=== PATIENT | male | born 1985 | race Caucasian/White ===

== ENCOUNTER 2019-09-19 18:02 | Emergency (ER) | payer OTHER, SELFPAY ==
[2019-09-19 18:23] VITALS: BP 126/73; PULSE 55; RESP 18; TEMP 36.2; O2SAT 100
[2019-09-19] MEDS: TETANUS,DIPHTHERIA,AC PERTUSSIS ADULT 0.5 ML (ADACEL) IM (18:45)
--- NOTE | 2019-09-19 19:06 | ED.WOUNDLAC ---
HPI - Wound/Laceration General Chief Complaint: Wound/Laceration Stated Complaint: cut hand Source: patient Limitations: no limitations History of Present Illness HPI narrative: This is a 34-year-old gentleman presents with a laceration to the radial surface of his right hand approximately 3cm in length that is keeping with minimal blood loss is not up-to-date with his tetanus, currently there is no fever chills can wiggle his fingers there is no numbness and has a strong brisk radial pulse. Laceration occurred while using a saw that occurred approximately 2 to 3 hours ago. Onset (ago): hour(s) Extremity Location: Right: hand (gapping lac) Place: home Context: accidental Associated symptoms: none Treatments prior to arrival: bandage Related Data Home Medications Medication Instructions Recorded Confirmed No Home Medications 09/19/19 09/19/19 Allergies Allergy/AdvReac Type Severity Reaction Status Date / Time doxycycline Allergy Mild Unknown Verified 09/19/19 18:37 Review of Systems Review of Systems: All systems reviewed & are unremarkable except as noted in HPI and below PMFSH Past Medical History Medical History Patient denies medical problems Exam Const: General: no acute distress and alert Orientation/consciousness: patient oriented x3 HENMT: Head: normal to inspection and contusion Eyes: Conjunctivae: conjunctivae normal Pupils: Equal, round and reactive pupils present Neck: Neck: normal visual inspection Chest: Chest palpation & inspection: normal inspection of the chest Resp: Effort & Inspection: normal respiratory effort Cardio: Rate: regular rate Rhythm: regular rhythm GI: GI Palp: Yes Soft to palpation Skin: Other: 3Cm laceration mildly gaping to the anterior surface of his right hand Psych: Mental Status: mental status grossly normal Course Vital Signs Vital signs: Vital Signs Temperature 36.2 C L 09/19/19 18:23 Pulse Rate 55 L 09/19/19 18:23 Respiratory Rate 18 09/19/19 18:23 Blood Pressure 126/73 09/19/19 18:23 Pulse Oximetry 100 09/19/19 18:23 Temperature 36.2 C L 09/19/19 18:23 Pulse Rate 55 L 09/19/19 18:23 Respiratory Rate 18 09/19/19 18:23 Blood Pressure 126/73 09/19/19 18:23 Pulse Oximetry 100 09/19/19 18:23 Procedures Laceration Laceration 1: Date: 09/19/19 Time: 19:08 Site: hand Side (If applicable): right Size (cm): 3 Description: linear Depth: simple, single layer Local Anesthetic: lidocaine 1% Amount of anesthesia used (mL): 5 Pre-repair: wound explored and irrigated ====== Skin Level ====== Skin layer closed with: vicryl Size (cm): 5-0 Number of sutures: 5 ====== Subcutaneous Layer ====== ====== Muscle Layer ====== ====== Tendon Layer ====== Critical Care Time Critical Care Time Critical Care Time: No Discharge Plan Discharge Clinical Impression: Laceration Patient Disposition: Home, Self-Care Condition: Stable Instructions: Antibiotic Form Additional Instructions: follow-up with primary care physician in 1 week for suture removal. Prescriptions: No Action No Home Medications RF: 0 Follow-up/Referrals: UNKNOWN,DOCTOR [Primary Care Provider] - Time of Disposition: 19:10
== END 2019-09-19 19:18 | disposition home or self-care (01) ==
PROVIDERS: Emergency Provider Emergency Medicine
DX: S61.411A Laceration without foreign body of right hand, initial encounter (principal); W27.8XXA Contact with other nonpowered hand tool, initial encounter
CPT/HCPCS: 12002; 90471; 90715; 99282; 99283

== ENCOUNTER 2022-01-10 15:15 | Outpatient (CLI) | payer OTHER, SELFPAY ==
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
== END 2022-01-10 15:16 | disposition home or self-care (01) ==
LOC: CHSIMG 15:18
PROVIDERS: PCP Family Medicine; Visit Provider Nurse Practitioner Family
DX: S09.93XA Unspecified injury of face, initial encounter (principal)
CPT/HCPCS: 70150

== ENCOUNTER 2022-05-20 10:00 | Outpatient (CLI) | payer OTHER, SELFPAY ==
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
== END 2022-05-20 10:01 | disposition home or self-care (01) ==
LOC: CHSIMG 10:01
PROVIDERS: PCP Family Medicine; Visit Provider Family Medicine
DX: S09.93XD Unspecified injury of face, subsequent encounter (principal)
CPT/HCPCS: 70486

== ENCOUNTER 2024-12-17 15:54 | Outpatient (CLI) | payer OTHER, SELFPAY ==
--- NOTE | ~2024-12-17 | XR_ITS ---
CHEST RADIOGRAPH, PA AND LATERAL CLINICAL HISTORY: acute cough . COMPARISON: None available TECHNIQUE: PA and lateral views of the chest. FINDINGS The cardiomediastinal silhouette is unremarkable. The lungs are clear. IMPRESSION: No focal infiltrate or effusion. Reviewed, dictated and finalized at location []
--- OUTSIDE RECORDS SUMMARY | 2024-12-17 16:04 | XMS_ITS | Encounter Summary ---
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
--- OUTSIDE RECORDS SUMMARY | 2024-12-17 16:04 | XMS_ITS | Clinical Summary ---
Author Organization [facility] Address [address], [facility] [address] [place] [address] Phone Care Team Providers Care Banana Expert Name Role Phone Provider, None Primary Care Provider Dangelo Suazo MD Unavailable [phone] Allergies Active Allergy Reactions Criticality Noted Date Comments Doxycycline Calcium Hives,Rash,Other (se e Comments) In direct sunlight Medications ibuprofen (MOTRIN) 400 MG Tablet Take 400 mg by mouth as needed. Active Active Problems Problem Noted Date Diagnosed Date Umbilical hernia without obstruction and without gangrene 06/04/2015 Umbilical hernia Family History Medical History Relation Name Comments Diabetes Maternal Uncle Asthma Mother Cancer Mother Relation Name Status Comments Father Alive Maternal Uncle Mother Alive Social History Tobacco Use Types Packs/Day Years Used Date Smoking Tobacco: Never Smokeless Tobacco: Never Tobacco Cessation:Counseling Given: Yes Alcohol Use Standard Drinks/Week Comments Yes 0 (1 standard drink = 0.6 oz pur e alcohol) Social Drinker Sex and Gender Information Value Date Recorded Sex Assigned at Not on file Legal Sex Male 10:00 PM CDT Gender Identity Not on file Sexual Orientation Not on file Last Filed Vital Signs Vital Sign Reading Time Taken Comments Blood Pressure 132/90 06/23/2015 1:20 PM CASKET TRIMMER Pulse 76 06/23/2015 1:20 PM CASKET TRIMMER Temperature 36.3 C (97.3 F) 06/23/2015 1:20 PM CASKET TRIMMER Respiratory Rate 16 06/04/2015 2:45 PM CASKET TRIMMER Oxygen Saturation 97% 06/04/2015 2:45 PM CASKET TRIMMER Inhaled Oxygen Concentration - - Weight 93.4 kg (206 lb) 06/23/2015 1:20 PM CASKET TRIMMER Height 188 cm (6' 2) 06/23/2015 1:20 PM CASKET TRIMMER Body Mass Index 26.45 06/23/2015 1:20 PM CASKET TRIMMER Plan of Treatment Health Maintenance Due Date Last Done Comments Hepatitis C Virus (HCV) Screening 1983 TdaP Immunization 1983 Hepatitis B Immunization (1 of 3 - 19+ 3-dose series) 2002 Influenza Immunization (#1) 2024 SARS-COV-2 Immunization (2023- season) 2024 Respiratory Syncytial Virus (RSV) Immunization (Adult) (1 - 1-dose 75+ series) 2058 Meningococcal Immunization (ACWY) Aged Out No longer eligible based on patient's age to complete this topic Pneumococcal Immunization Combined Aged Out No longer eligible based on patient's age to complete this topic Rotavirus Immunization Aged Out No lo nger eligible based on patient's age to complete this topic Medical Devices Implanted Type Area [facility] Device Identifier Shelf Expiration Date Model / Serial / Lot Mesh C-Qur 9x9cm 3.5x3.5 - [id number] Implanted:Qty : 1 on 06/04/2015 by Dangelo West MD at [facility] IMPLANT N/A: Umbilical [employer] / [employer] 04/04/2017 [id number] / / [id number] Care Teams Banana Expert Relationship Specialty Start Date End Date Provider, None [place] PCP - General 05/25/15 Dangelo West MD [place] [facility] 05/28/15
--- OUTSIDE RECORDS SUMMARY | 2024-12-17 16:04 | XMS_ITS | Data Portability ---
[facility] Organization [facility] Address [address] [place] [address] Assessment No assessment recorded. Plan of Treatment Reminders Order Date Submit Date Provider Last Modified By Organization Details Last Modified Time Details Appointments None recorded. Lab None recorded. Referral None recorded. Procedures None recorded. Surgeries None recorded. Imaging None recorded. Medication Orders Bactrim DS 800 mg-160 mg tablet 2016 017 INTERFACE [facility], [address] [place] [address], [address], 7 15:54:10 Patient TargetsNo targets recorded. Patient InstructionsNo instructions recorded. Reason for Referral None Reported. Medical Equipment None Reported. Allergies Allergen ID Allergen Name Allergen Category Reaction Reaction Severity Criticality Documentation Date Start Date Code Code System Note Provider Name and Address Organization Details Recorded Time 8[address]59 doxycycli ne Not available Not available Not available Not available 12/02/2016 3640 RxNorm OTTON[place]EL [place], [facility] 7 15:16:41 Medications Name Sig Start Date Stop Date Status Note LastModified by Organization Details LastModified Time cephalexin 500 mg capsule Take 1 capsule every 8 hours by oral route as directed for 10 days. active Not Available Not Available No t Available Bactrim DS 800 mg-160 mg tablet Take 1 tablet every 12 hours by oral route for 10 days. 017 active Not Available Not Available Not Avai lable Vitals Date Recorded Body weight Body height Body mass index (BMI) Oxygen saturation Oxygen saturation in Arterial blood by Pulse oximetry Heart rate Systolic blood pressure Diastolic blood pressure Provider Name and Address Organization Details Last Updated DateTime 7 63253.1 7 g 187.96 cm 27.3 kg/m2 98 % 98 % 94 /min 120 mm[Hg] 92 mm[Hg] Beckie Enriquez MA [place] - [facility] 7 15:15:33 Social History None recorded. Functional Status None recorded. Mental Status None recorded. Family History Nothing Reported. Medical History No medical history recorded. Immunizations Vaccine Type Date Status Note Provider Nam e and Address Organization Details Recorded Time COVID-19, mRNA, LNP-S, PF, 30 mcg/0.3 mL dose 08/25/2020 completed Cesar noel, [place] - [facility] 11/17/2020 09:07:36 COVID-19, mRNA, LNP-S, PF, 30 mcg/0.3 mL dose 09/15/2020 completed Cesar noel, [place] - [facility] 11/17/2020 09:07:56 Tdap 12/02/2016 completed Not Available [facility] 07/06/[facility] 02:33:51 Past Encounters Encounter ID Performer Location Encounter Start Date Encounter Closed Date Diagnosis/Indication Diagnosis SNOMED-CT Code Diagnosis ICD10 Code Diagnosis Note [id number] Jason [address] MD [facility] [address] [place] [address] 12/02/2016 15:02:00 12/02/2016 16:56:13 Dog bite of lower leg [id number] S81.851A Health Concerns Section Related Observation LastModified by Organization Detai ls LastModified Time None Recorded Concern Status LastModified by Organization Details LastModified Time None Recorded Advance Directives Directive None Recorded Payers Insurance Date Sequence Insurance Name Policy Number Policy Kwan Covered Member ID Kwan Member ID Guarantor Name 12/02/2016 1 *SELF PAY* [facility] Notes Date Note Type Note Provider Name and Address Organization Details Recorded Time 12/02/2016 text/html got bit by a dog on lft calf. about 1 hour ago. does not remember last tetanus shot. Kar David PA-C Attn: Accounting,[address] [facility], [place], [address], [place] - [place] 12/02/2016 15:57:08
--- OUTSIDE RECORDS SUMMARY | 2024-12-17 16:04 | XMS_ITS | Clinical Summary ---
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 Gender Identity Not on file Sexual Orientation Not on file Plan of Treatment Health Maintenance Due Date Last Done Comments Annual Physical 1986 Hepatitis C 2001 DTaP, Tdap and Td Vaccines ( 1 - Tdap) 2002 Hepatitis B Vaccines (1 of 3 - 19+ 3-dose series) 2002 COVID-19 Vaccine (2023-2 5 season) 2024 HPV Vaccines Aged Out No longer eligi ble based on patient's age to complete this topic Meningococcal B Vaccine Aged Out No l onger eligible based on patient's age to complete this topic Meningococcal Vaccine Aged Out No liliana lidia eligible based on patient's age to complete this topic Pneumococcal Vaccine: Pediat rics (0 to 5 Years) and At-Risk Patients (6 to 49 Years) Aged Out No longer eligible b ased on patient's age to complete this topic RSV Immunizations Under 20 Months Aged Out No longer eligible based on patient's age to complete this topic
== END 2024-12-17 15:55 | disposition home or self-care (01) ==
LOC: CHSIMG 16:02
PROVIDERS: PCP Family Medicine; Visit Provider Family Medicine
DX: R05.1 Acute cough (principal)
CPT/HCPCS: 71046